=== PATIENT | female | born 1945 | race Caucasian/White ===

== ENCOUNTER → 2016-12-20 | Outpatient (CLI) | payer MEDICARE ==
[~2016-12-20] MED LIST: AC325T PO; ACLI400A IH; ACYC400T21 PO; ALBU8.5H2 IH; ALPR1T PO; ASP81TEC PO; BUDE6HFA IH; BUPR150T6 PO; BUPR150T7 PO; EZET1TAB44 PO; GABA600T2 PO; ISM30TCR PO; ISOS30TA3 PO; ISOS60TA3 PO; LEVO750T24 PO; METH500T35 PO; METH500T7 PO; MTP25TSR; NITR0.3T6 SL; NITR4.1S2 TL; NITROLINGUAL; OMEP20TA2 PO; RPN.25T PO; RT-ALBUINH INH; TRAM1TAB7 PO; TRAZ150T42 PO
[2016-12-20 11:56] LABS: BASOPHILS % (AUTO) 1 % (0-10); EOSINOPHILS # (AUTO) 0.3 10^3/uL (0.0-0.3); EOSINOPHILS % (AUTO) 5 % (0-10); LYMPHOCYTES # (AUTO) 2.8 X 10^3 (1.0-4.0); LYMPHOCYTES % (AUTO) 44 % (12-44); MEAN CORPUSCULAR HEMOGLOBIN 33 PG (25-34); MEAN CORPUSCULAR HGB CONC 33 G/DL (32-36); MEAN CORPUSCULAR VOLUME 100 FL (80-99); MEAN PLATELET VOLUME 11.6 FL (7.4-10.4); MONOCYTES # (AUTO) 0.6 X 10^3 (0.0-1.0); MONOCYTES % (AUTO) 10 % (0-12); NEUTROPHILS # (AUTO) 2.6 X 10^3 (1.8-7.8); NEUTROPHILS % (AUTO) 41 % (42-75); PLATELET COUNT 153 10^3/uL (130-400); RED BLOOD COUNT 4.22 10^6/uL (4.35-5.85); RED CELL DISTRIBUTION WIDTH 12.1 % (10.0-14.5); WHITE BLOOD COUNT 6.3 10^3/uL (4.3-11.0)
[2016-12-20 12:19] LABS: ALBUMIN 4.2 G/DL (3.2-4.5); BILIRUBIN,TOTAL 0.5 MG/DL (0.1-1.0); CALCIUM 9.7 MG/DL (8.5-10.1); CREATININE SERUM 1.01 MG/DL (0.60-1.30); POTASSIUM 3.9 MMOL/L (3.6-5.0); TOTAL PROTEIN 6.5 G/DL (6.4-8.2)
== END ==
LOC: LAB 11:38
PROVIDERS: ATTEND Family Medicine
DX: E78.5 Hyperlipidemia, unspecified (principal); I10 Essential (primary) hypertension; G62.9 Polyneuropathy, unspecified
CPT/HCPCS: 36415; 80053; 80061; 84443; 85025

== ENCOUNTER → 2017-02-19 | Outpatient (CLI) | payer MEDICARE ==
--- NOTE | 2017-02-19 15:42 | Diagnostic Imaging Report ---
PA and lateral views of the chest. COMPARISON: 11/09/2015. INDICATION: Chest wall pain. FINDINGS: The lungs are hyperinflated but clear. The heart size is normal. There is no effusion or pneumothorax. The mediastinum and carol appear unremarkable. IMPRESSION: Hyperinflated clear lungs. Dictated by: Dictated on workstation # [id number]
== END ==
LOC: RAD 14:35
PROVIDERS: ATTEND Family Medicine
DX: R07.89 Other chest pain (principal)
CPT/HCPCS: 71020

== ENCOUNTER → 2017-02-26 | Outpatient (CLI) | payer MEDICARE ==
--- NOTE | 2017-02-28 19:08 | Diagnostic Imaging Report ---
Bilateral screening mammogram The current study was also evaluated with a Computer Aided Detection (CAD) system. Indication: Screening. No current complaints stated on the questionnaire. COMPARISON: 01/13/14. FINDINGS: The breasts are composed of scattered fibroglandular densities. Lobulated nodules with suggestion of fatty hilum are seen in the axillary tail of the right breast and in the lateral aspect of the left breast similar to prior exams compatible with intramammary lymph nodes. Allowing for technique and positional differences, no suspicious change is seen. IMPRESSION: No significant change. ACR BI-RADS Category 2: Benign findings. Result letter will be mailed to the patient. Note: At least 10% of breast cancer is not imaged by mammography. Dictated by: Dictated on workstation # [id number]
== END ==
LOC: RAD 13:04
PROVIDERS: ATTEND Family Medicine
DX: Z12.31 Encounter for screening mammogram for malignant neoplasm of breast (principal)
CPT/HCPCS: 77067

== ENCOUNTER → 2017-06-25 | Outpatient (CLI) | payer MEDICARE ==
--- NOTE | 2017-06-25 15:38 | Diagnostic Imaging Report ---
PROCEDURE: CT chest without contrast. TECHNIQUE: Multiple contiguous axial images were obtained through the chest without the use of intravenous contrast. INDICATION: Chest pain and shortness of breath. FINDINGS: There is mild emphysema changes in the upper lobes. No significant consolidation or mass. No suspicious nodule. No significant interstitial thickening or bronchiectasis. The heart size is normal. There is no pericardial or pleural effusion. The thoracic aorta is normal in caliber. There is no mediastinal mass or significantly enlarged lymph nodes. No significantly enlarged axillary lymph nodes seen. Sections in the upper abdomen demonstrate surgical clips at the gallbladder bed. There is a tiny fat-containing diaphragmatic hernia along the posterior medial aspect of the right hemidiaphragm. The osseous structures demonstrate degenerative changes. IMPRESSION: Upper lobe predominant emphysema changes. Dictated by: Dictated on workstation # [id number]
== END ==
LOC: RAD 13:13
PROVIDERS: ATTEND Family Medicine
DX: J43.9 Emphysema, unspecified (principal)
CPT/HCPCS: 71250

== ENCOUNTER → 2017-09-30 | Outpatient (CLI) | payer MEDICARE ==
--- NOTE | 2017-09-30 16:41 | Diagnostic Imaging Report ---
PROCEDURE: US Carotid Duplex Bilateral. TECHNIQUE: Multiple Real-time grayscale images were obtained over the carotid arteries in various projections bilaterally. Additional duplex Doppler and color Doppler images were also obtained. INDICATION: Left carotid bruit. FINDINGS: Grayscale images demonstrate proximal and distal left internal carotid artery calcified plaque. Prominent calcified plaque also in the proximal right ICA is seen extending into the mid segment with shadowing preventing accurate evaluation of the mid ICA on the right side. Color Doppler demonstrates patency of the common, internal, and external carotid arteries and antegrade flow is demonstrated within the vertebral arteries on both sides. The peak systolic velocities in the right ICA are 98, 149, and 114 cm/s and on the left side are 127, 122, and 136 cm/s. The ICA/CCA ratios are up to 2.4 on the right side and 2.3 on the left. IMPRESSION: There is prominent calcified atherosclerotic plaque along the proximal ICA bilaterally. The velocities demonstrate only mild to moderate elevation; however, the ICA/CCA ratios are elevated above 2 bilaterally. The underlying degree of stenosis is probably within 50-69% bilaterally. Dictated by: Dictated on workstation # [id number]
--- NOTE | 2017-09-30 17:24 | Diagnostic Imaging Report ---
PROCEDURE: CT neck soft tissue without contrast. TECHNIQUE: Multiple contiguous axial images were obtained through the neck without the use of intravenous contrast. INDICATION: Pain in the left side of the neck from ear to shoulder. Left carotid bruit reported. FINDINGS: Noncontrasted images show moderate dense atherosclerotic plaquing within the carotid bulbs bilaterally. There is likely hemodynamic stenosis within both internal carotid arteries. Lack of IV contrast limits detail. Parotid glands appear normal. Submandibular glands are normal. The cervical chains show normal-sized lymph nodes bilaterally. Strap muscles show good preservation of tissue planes. Parapharyngeal tissue planes are normal. Nasopharynx and oropharynx appear normal. Bone windows show no blastic or lytic lesions. Reconstructed images show good alignment of the vertebral bodies with degenerative disc disease centered at C5-C6 with mild hypertrophic bony changes. IMPRESSION: 1. Noncontrasted CT of the neck showing a very dense calcified plaque within the carotid bulbs with probable hemodynamic stenosis of the internal carotid arteries bilaterally. Previous carotid Doppler report from the same day suggests a moderate stenosis. 2. No cervical chain adenopathy. 3. No findings to suggest abscess or neoplasm. Dictated by: Dictated on workstation # [id number]
== END ==
LOC: RAD 03:58
PROVIDERS: ATTEND Family Medicine
DX: I65.23 Occlusion and stenosis of bilateral carotid arteries (principal)
CPT/HCPCS: 70490; 93880

== ENCOUNTER → 2018-06-05 | Outpatient (CLI) | payer MEDICARE ==
--- NOTE | 2018-06-05 14:38 | Diagnostic Imaging Report ---
INDICATION: Loss of voice, chest pain and pain in throat for approximately 7 months.. TECHNIQUE: Two view chest 2:44 PM CORRELATION STUDY: 02/19/2017 FINDINGS: The heart size, mediastinal configuration and pulmonary vasculature are within normal limits. The lungs are slightly hyperlucent and hyperinflated suggestive of chronic predominantly upper lobe emphysematous changes. No consolidating infiltrate. There is no significant pleural effusion or pneumothorax. Slight degenerative changes of the spine. IMPRESSION: 1. No radiographic evidence for acute abnormality of the chest. Chronic changes of the lung parenchyma. Dictated by: Dictated on workstation # [id number]
== END ==
LOC: RAD 14:13
PROVIDERS: ATTEND Nurse Practitioner Family
DX: J02.9 Acute pharyngitis, unspecified (principal); R07.81 Pleurodynia; R49.1 Aphonia; I25.2 Old myocardial infarction; Z95.5 Presence of coronary angioplasty implant and graft
CPT/HCPCS: 71046

== ENCOUNTER → 2018-06-09 | Outpatient (CLI) | payer MEDICARE ==
[2018-06-09 18:10] LABS: BASOPHILS % (AUTO) 0 % (0-10); EOSINOPHILS # (AUTO) 0.2 10^3/uL (0.0-0.3); EOSINOPHILS % (AUTO) 5 % (0-10); HEMATOCRIT 41 % (35-52); HEMOGLOBIN 13.4 G/DL (11.5-16.0); LYMPHOCYTES # (AUTO) 1.3 X 10^3 (1.0-4.0); LYMPHOCYTES % (AUTO) 24 % (12-44); MEAN CORPUSCULAR HEMOGLOBIN 33 PG (25-34); MEAN CORPUSCULAR HGB CONC 33 G/DL (32-36); MEAN CORPUSCULAR VOLUME 99 FL (80-99); MEAN PLATELET VOLUME 11.9 FL (7.4-10.4); MONOCYTES # (AUTO) 0.5 X 10^3 (0.0-1.0); MONOCYTES % (AUTO) 9 % (0-12); NEUTROPHILS # (AUTO) 3.3 X 10^3 (1.8-7.8); NEUTROPHILS % (AUTO) 62 % (42-75); PLATELET COUNT 175 10^3/uL (130-400); RED BLOOD COUNT 4.12 10^6/uL (4.35-5.85); RED CELL DISTRIBUTION WIDTH 12.7 % (10.0-14.5); WHITE BLOOD COUNT 5.3 10^3/uL (4.3-11.0)
[2018-06-09 18:30] LABS: BILIRUBIN,TOTAL 0.6 MG/DL (0.1-1.0); CALCIUM 9.9 MG/DL (8.5-10.1); CREATININE SERUM 1.09 MG/DL (0.60-1.30); POTASSIUM 4.7 MMOL/L (3.6-5.0); TOTAL PROTEIN 6.4 GM/DL (6.4-8.2)
== END ==
LOC: LAB 17:46
PROVIDERS: ATTEND Nurse Practitioner Family
DX: R13.14 Dysphagia, pharyngoesophageal phase (principal); R07.81 Pleurodynia; J02.9 Acute pharyngitis, unspecified; I25.2 Old myocardial infarction; Z95.5 Presence of coronary angioplasty implant and graft
CPT/HCPCS: 36415; 80053; 80061; 84443; 85025

== ENCOUNTER 2019-01-06 06:31 | Outpatient (CLI) | payer MEDICARE ==
[~2019-01-06] VITALS: Ht 157.5 cm; Wt 70.4 kg
[~2019-01-06 06:31] MED LIST changes: +GBPN600T PO
[2019-01-06] MEDS ORDERED: ISOS120T9 PO (14:12)
[2019-01-06] MEDS ORDERED: CYAN250010 PO (14:12)
[2019-01-06] MEDS ORDERED: ASPI-999 PO (14:12)
[2019-01-06] MEDS ORDERED: TRAZ150T72 PO (14:12)
[2019-01-06] MEDS ORDERED: BUDE10.2 IH (14:12)
[2019-01-06] MEDS ORDERED: ATOR40TA PO (14:12)
== END 2019-01-06 14:16 | disposition home or self-care (01) ==
LOC: PREOP 06:31
PROVIDERS: ATTEND Surgery
DX: Z01.818 Encounter for other preprocedural examination (principal)

== ENCOUNTER → 2019-01-12 | Outpatient (CLI) | payer MEDICARE ==
[~2019-01-12] MED LIST changes: +ASPI-999 PO; +ATOR40TA PO; +BUDE10.2 IH; +CYAN250010 PO; +ISOS120T9 PO; +PANT40TA2 PO; +RT-ALBUTEROL SULF 2.5 MG/3 ML PRE-MIX VIAL INH ONE; +RT-ALBUTEROL SULF 2.5 MG/3 ML PRE-MIX VIAL ONE; +TRAZ150T72 PO
--- NOTE | 2019-01-12 16:47 | Diagnostic Imaging Report ---
PROCEDURE: CT chest without contrast. TECHNIQUE: Multiple contiguous axial images were obtained through the chest without the use of intravenous contrast. INDICATION: Dyspnea. COMPARISON: Comparison is made to study of 03/11/2014. FINDINGS: Lungs are clear bilaterally. Coronary artery calcifications and calcification at the origins of the great vessels of the mediastinum are again noted. There may be small amount of pericardial fluid or thickening. There is no evidence of pathologic adenopathy identified on the noncontrasted images. There are degenerative changes in the shoulder girdles. IMPRESSION: No acute abnormality or significant change is seen within the thorax. Dictated by: Dictated on workstation # [id number]
== END ==
LOC: RT 15:31
PROVIDERS: ATTEND Nurse Practitioner Family
DX: R06.00 Dyspnea, unspecified (principal); J44.9 Chronic obstructive pulmonary disease, unspecified; R13.10 Dysphagia, unspecified; F17.201 Nicotine dependence, unspecified, in remission
CPT/HCPCS: 71250; 94060; 94726; 94729

== ENCOUNTER 2019-01-13 12:26 | Day surgery (SDC) | payer MEDICARE ==
[~2019-01-13] VITALS: Ht 157.5 cm; Wt 70.4 kg
[~2019-01-13 12:26] MED LIST changes: -PANT40TA2 PO; -RT-ALBUTEROL SULF 2.5 MG/3 ML PRE-MIX VIAL INH ONE; -RT-ALBUTEROL SULF 2.5 MG/3 ML PRE-MIX VIAL ONE
--- OUTSIDE RECORDS SUMMARY | 2019-01-13 12:30 | XMS REPORT | Continuity of Care Document ---
Author Author [facility] Organization [facility] Address Unknown Phone Unavailable Allergies Active Description Code Type Severity Reaction Onset Reported/Identified Relationship to Patient Clinical Status Yes Iodinated Contrast Media - IV Dye [id number] Drug Allergy Severe ANAPHYLAXIS 09/27/2009 Yes Iodinated Contrast Media - Oral and [id number] Drug Allergy Severe ANAPHYLAXIS 09/27/2009 Yes Iodinated Contrast- Oral and IV Dye [id number] Drug Allergy Severe ANAPHYLAXIS 01/06/2019 Yes codeine [id number] Drug Allergy Moderate NAUSEA 01/06/2019 Yes Antihistamines - Alkylamine [id number] Drug Allergy Mild N/A 01/06/2019 Yes morphine [id number] Drug Allergy Unknown N/A 01/06/2019 Medications There is no data. 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 02/11/2014 MIRLANDE PAUL MD R Ot 496 CHR AIRWAY OBSTRUCT NEC 02/11/2014 MIRLANDE PAUL MD R Ot 518.0 PULMONARY COLLAPSE 02/11/2014 MIRLANDE PAUL MD R Ot 724.5 BACKACHE NOS 02/11/2014 BEVERLY ARNOLD, MIRLANDE R Ot V45.82 PERCUTANEOUS TRANSLUM CORON ANGIOPLASTY 03/10/2014 JARAD BOUDREAUX DO Ot 493.20 CHRONIC OBSTRUCTIVE ASTHMA, NOS 02/11/2015 Ot 079.99 VIRAL INFECTION NOS 02/11/2015 Ot 276.50 VOLUME DEPLETION, UNSPECIFIED 02/11/2015 Ot 496 CHR AIRWAY OBSTRUCT NEC 06/30/2015 BEVERLY ARNOLD, MIRLANDE R Ot 786.50 06/30/2015 MIRLANDE PAUL MD R Ot 786.50 07/15/2015 MIRLANDE PAUL MD R Ot 789.01 11/14/2015 MIRLANDE PAUL MD Ot E78.5 HYPERLIPIDEMIA, UNSPECIFIED 11/14/2015 MIRLANDE PAUL MD R Ot F17.210 NICOTINE DEPENDENCE, CIGARETTES, UNCOMPL 11/14/2015 MIRLANDE PAUL MD R Ot F32.9 MAJOR DEPRESSIVE DISORDER, SINGLE EPISOD 11/14/2015 MIRLANDE PAUL MD R Ot F41.9 ANXIETY DISORDER, UNSPECIFIED 11/14/2015 MIRLANDE PAUL MD R Ot I10 ESSENTIAL (PRIMARY) HYPERTENSION 11/14/2015 MIRLANDE PAUL MD R Ot I25.10 ATHSCL HEART DISEASE OF [place] CORONARY 11/14/2015 MIRLANDE PAUL MD R Ot J44.0 CHRONIC OBSTRUCTIVE PULMON DISEASE W ACU 11/14/2015 MIRLANDE PAUL MD R Ot K21.9 GASTRO-ESOPHAGEAL REFLUX DISEASE WITHOUT 11/14/2015 MIRLANDE PAUL MD R Ot M54.5 LOW BACK PAIN 11/14/2015 MIRLANDE PAUL MD R Ot Z91.14 PATIENT'S OTHER NONCOMPLIANCE WITH MEDIC 12/20/2016 Ot 780.2 SYNCOPE AND COLLAPSE 12/20/2016 Ot 780.2 SYNCOPE AND COLLAPSE 12/20/2016 Ot V76.12 OTH SCREEN MAMMO-MALIGN NEOPLASM OF JOS[place] MIGUEL 12/20/2016 Ot 789.09 ABDOMINAL PAIN, OTHER SPECIFIED SITE 12/20/2016 JARAD BOUDREAUX DO Ot 305.1 TOBACCO USE DISORDER 12/20/2016 JARAD BOUDREAUX DO Ot 493.20 CHRONIC OBSTRUCTIVE ASTHMA, NOS 12/20/2016 JARAD BOUDREAUX DO Ot 729.1 MYALGIA AND MYOSITIS NOS 12/20/2016 BEVERLY ARNOLD, MIRLANDE R Ot 611.72 LUMP OR MASS IN BREAST 12/20/2016 BEVERLY ARNOLD, MIRLANDE R Ot 715.36 LOC OSTEOARTH NOS-L/LEG 12/20/2016 Ot 780.79 OTH MALAISE FATIGUE 12/20/2016 Ot 789.00 ABDOMINAL PAIN, UNSPECIFIED SITE 12/20/2016 JARAD BOUDREAUX DO Ot 296.99 OTHER SPECIFIED EPISODIC MOOD DISORDER 12/20/2016 JARAD BOUDREAUX DO Ot 305.1 TOBACCO USE DISORDER 12/20/2016 JARAD BOUDREAUX DO Ot 401.9 HYPERTENSION NOS 12/20/2016 JARAD BOUDREAUX DO Ot 493.20 CHRONIC OBSTRUCTIVE ASTHMA, NOS 12/20/2016 JARAD BOUDREAUX DO Ot 793.19 OTHER NONSPECIFIC ABNORMAL FINDING OF BEN 12/20/2016 Ot 493.20 CHRONIC OBSTRUCTIVE ASTHMA, NOS 12/20/2016 MIRLANDE PAUL MD R Ot 786.50 CHEST PAIN NOS 12/20/2016 BEVERLY ARNOLD MIRLANDE R Ot 786.50 CHEST PAIN NOS 12/20/2016 MIRLANDE PAUL MD R Ot 789.01 ABDOMINAL PAIN, RIGHT UPPER QUADRANT 12/21/2016 MIRLANDE PAUL MD R Ot E78.5 HYPERLIPIDEMIA, UNSPECIFIED 12/21/2016 MIRLANDE PAUL MD R Ot G62.9 POLYNEUROPATHY, UNSPECIFIED 12/21/2016 BEVERLY ARNOLD MIRLANDE R Ot I10 ESSENTIAL (PRIMARY) HYPERTENSION 01/10/2017 MIRLANDE PAUL MD R Ot E78.5 HYPERLIPIDEMIA, UNSPECIFIED 01/10/2017 BEVERLY ARNOLD MIRLANDE R Ot G62.9 POLYNEUROPATHY, UNSPECIFIED 01/10/2017 BEVERLY ARNOLD MIRLANDE R Ot I10 ESSENTIAL (PRIMARY) HYPERTENSION 02/19/2017 Ot 780.2 SYNCOPE AND COLLAPSE 02/19/2017 Ot 780.2 SYNCOPE AND COLLAPSE 02/19/2017 Ot V76.12 OTH SCREEN MAMMO-MALIGN NEOPLASM OF [place] 02/19/2017 Ot 789.09 ABDOMINAL PAIN, OTHER SPECIFIED SITE 02/19/2017 JARAD BOUDREAUX DO Ot 305.1 TOBACCO USE DISORDER 02/19/2017 JARAD BOUDREAUX DO Ot 493.20 CHRONIC OBSTRUCTIVE ASTHMA, NOS 02/19/2017 JARAD BOUDREAUX DO Ot 729.1 MYALGIA AND MYOSITIS NOS 02/19/2017 MIRLANDE PAUL MD R Ot 611.72 LUMP OR MASS IN BREAST 02/19/2017 MIRLANDE PAUL MD R Ot 715.36 LOC OSTEOARTH NOS-L/LEG 02/19/2017 Ot 780.79 OTH MALAISE FATIGUE 02/19/2017 Ot 789.00 ABDOMINAL PAIN, UNSPECIFIED SITE 02/19/2017 JARAD BOUDREAUX DO Ot 296.99 OTHER SPECIFIED EPISODIC MOOD DISORDER 02/19/2017 JARAD BOUDREAUX DO Ot 305.1 TOBACCO USE DISORDER 02/19/2017 JARAD BOUDREAUX DO Ot 401.9 HYPERTENSION NOS 02/19/2017 JARAD BOUDREAUX DO Ot 493.20 CHRONIC OBSTRUCTIVE ASTHMA, NOS 02/19/2017 JARAD BOUDREAUX DO Ot 793.19 OTHER NONSPECIFIC ABNORMAL FINDING OF BEN 02/19/2017 Ot 493.20 CHRONIC OBSTRUCTIVE ASTHMA, NOS 02/19/2017 MIRLANDE PAUL MD R Ot 786.50 CHEST PAIN NOS 02/19/2017 MIRLANDE PAUL MD Ot 786.50 CHEST PAIN NOS 02/19/2017 MIRLANDE PAUL MD Ot 789.01 ABDOMINAL PAIN, RIGHT UPPER QUADRANT 02/19/2017 MIRLANDE PAUL MD Ot E78.5 HYPERLIPIDEMIA, UNSPECIFIED 02/19/2017 MIRLANDE PAUL MD Ot G62.9 POLYNEUROPATHY, UNSPECIFIED 02/19/2017 MIRLANDE PAUL MD R Ot I10 ESSENTIAL (PRIMARY) HYPERTENSION 02/19/2017 MIRLANDE PAUL MD R Ot Z12.31 ENCNTR SCREEN MAMMOGRAM FOR MALIGNANT NE 02/20/2017 MIRLANDE PAUL MD R Ot R07.89 OTHER CHEST PAIN 03/18/2017 MIRLANDE PAUL MD Ot R07.89 OTHER CHEST PAIN 03/19/2017 MIRLANDE PAUL MD Ot Z12.31 ENCNTR SCREEN MAMMOGRAM FOR MALIGNANT NE 07/16/2017 MIRLANDE PAUL MD Ot J43.9 EMPHYSEMA, UNSPECIFIED 09/30/2017 Ot 780.2 SYNCOPE AND COLLAPSE 09/30/2017 Ot 780.2 SYNCOPE AND COLLAPSE 09/30/2017 Ot V76.12 OTH SCREEN MAMMO-MALIGN NEOPLASM OF [place] 09/30/2017 Ot 789.09 ABDOMINAL PAIN, OTHER SPECIFIED SITE 09/30/2017 JARAD BOUDREAUX DO Ot 305.1 TOBACCO USE DISORDER 09/30/2017 JARAD BOUDREAUX DO Ot 493.20 CHRONIC OBSTRUCTIVE ASTHMA, NOS 09/30/2017 JARAD BOUDREAUX DO Ot 729.1 MYALGIA AND MYOSITIS NOS 09/30/2017 MIRLANDE PAUL MD R Ot 611.72 LUMP OR MASS IN BREAST 09/30/2017 MIRLANDE PAUL MD R Ot 715.36 LOC OSTEOARTH NOS-L/LEG 09/30/2017 Ot 780.79 OTH MALAISE FATIGUE 09/30/2017 Ot 789.00 ABDOMINAL PAIN, UNSPECIFIED SITE 09/30/2017 JARAD BOUDREAUX DO Ot 296.99 OTHER SPECIFIED EPISODIC MOOD DISORDER 09/30/2017 JARAD BOUDREAUX DO Ot 305.1 TOBACCO USE DISORDER 09/30/2017 JARAD BOUDREAUX DO Ot 401.9 HYPERTENSION NOS 09/30/2017 JARAD BOUDREAUX DO Ot 493.20 CHRONIC OBSTRUCTIVE ASTHMA, NOS 09/30/2017 JARAD BOUDREAUX DO Ot 793.19 OTHER NONSPECIFIC ABNORMAL FINDING OF BEN 09/30/2017 Ot 493.20 CHRONIC OBSTRUCTIVE ASTHMA, NOS 09/30/2017 MIRLANDE PAUL MD R Ot 786.50 CHEST PAIN NOS 09/30/2017 MIRLANDE PAUL MD R Ot 786.50 CHEST PAIN NOS 09/30/2017 MIRLANDE PAUL MD R Ot 789.01 ABDOMINAL PAIN, RIGHT UPPER QUADRANT 09/30/2017 MIRLANDE PAUL MD R Ot E78.5 HYPERLIPIDEMIA, UNSPECIFIED 09/30/2017 MIRLANDE PAUL MD R Ot G62.9 POLYNEUROPATHY, UNSPECIFIED 09/30/2017 MIRLANDE PAUL MD R Ot I10 ESSENTIAL (PRIMARY) HYPERTENSION 09/30/2017 MIRLANDE PAUL MD R Ot Z12.31 ENCNTR SCREEN MAMMOGRAM FOR MALIGNANT NE 09/30/2017 MIRLANDE PAUL MD R Ot R07.89 OTHER CHEST PAIN 09/30/2017 MIRLANDE PAUL MD R Ot J43.9 EMPHYSEMA, UNSPECIFIED 09/30/2017 BEVERLY ARNOLD, MIRLANDE Olivera Ot R09.89 OTH SYMPTOMS AND SIGNS INVOLVING THE CIR 10/01/2017 BEVERLY ARNOLD, MIRLANDE Olivera Ot I65.23 OCCLUSION AND STENOSIS OF BILATERAL BRIGHT 10/22/2017 BEVERLY ARNOLD, MIRLANDE Olivera Ot I65.23 OCCLUSION AND STENOSIS OF BILATERAL BRIGHT 06/06/2018 JOSE MIGUEL JOSE ALBERTO R MIDDLEWARE CONSULTANT Ot I25.2 OLD MYOCARDIAL INFARCTION 06/06/2018 JOSE MIGUEL, JOSE ALBERTO R MIDDLEWARE CONSULTANT Ot J02.9 ACUTE PHARYNGITIS, UNSPECIFIED 06/06/2018 JOSE MIGUEL, JOSE ALBERTO R MIDDLEWARE CONSULTANT Ot R07.81 PLEURODYNIA 06/06/2018 JOSE MIGUEL, JOSE ALBERTO R MIDDLEWARE CONSULTANT Ot R49.1 APHONIA 06/06/2018 JOSE MIGUEL, JOSE ALBERTO R MIDDLEWARE CONSULTANT Ot Z95.5 PRESENCE OF CORONARY ANGIOPLASTY IMPLANT 06/10/2018 JOSE MIGUEL JOSE ALBERTO R MIDDLEWARE CONSULTANT Ot I25.2 OLD MYOCARDIAL INFARCTION 06/10/2018 JOSE MIGUEL, JOSE ALBERTO R MIDDLEWARE CONSULTANT Ot R13.14 DYSPHAGIA, PHARYNGOESOPHAGEAL PHASE 06/11/2018 JOSE MIGUEL JOSE ALBERTO R MIDDLEWARE CONSULTANT Ot I25.2 OLD MYOCARDIAL INFARCTION 06/11/2018 JOSE MIGUEL, JOSE ALBERTO R MIDDLEWARE CONSULTANT Ot J02.9 ACUTE PHARYNGITIS, UNSPECIFIED 06/11/2018 JOSE MIGUEL, JOSE ALBERTO R MIDDLEWARE CONSULTANT Ot R07.81 PLEURODYNIA 06/11/2018 JOSE MIGUEL, JOSE ALBERTO R MIDDLEWARE CONSULTANT Ot R49.1 APHONIA 06/11/2018 JOSE MIGUEL, JOSE ALBERTO R MIDDLEWARE CONSULTANT Ot Z95.5 PRESENCE OF CORONARY ANGIOPLASTY IMPLANT 06/11/2018 JOSE MIGUEL JOSE ALBERTO R MIDDLEWARE CONSULTANT Ot I25.2 OLD MYOCARDIAL INFARCTION 06/11/2018 JOSE MIGUEL JOSE ALBERTO R MIDDLEWARE CONSULTANT Ot J02.9 ACUTE PHARYNGITIS, UNSPECIFIED 06/11/2018 OJSE MIGUEL, JOSE ALBERTO R MIDDLEWARE CONSULTANT Ot R07.81 PLEURODYNIA 06/11/2018 JOSE MIGUEL, JOSE ALBERTO R MIDDLEWARE CONSULTANT Ot R13.14 DYSPHAGIA, PHARYNGOESOPHAGEAL PHASE 06/11/2018 JOSE MIGUEL JOSE ALBERTO R MIDDLEWARE CONSULTANT Ot Z95.5 PRESENCE OF CORONARY ANGIOPLASTY IMPLANT 06/15/2018 JOSE MIGUEL JOSE ALBERTO R MIDDLEWARE CONSULTANT Ot I25.2 OLD MYOCARDIAL INFARCTION 06/15/2018 JOSE MIGUEL, JOSE ALBERTO R MIDDLEWARE CONSULTANT Ot J02.9 ACUTE PHARYNGITIS, UNSPECIFIED 06/15/2018 JOSE MIGUEL, JOSE ALBERTO R MIDDLEWARE CONSULTANT Ot R07.81 PLEURODYNIA 06/15/2018 JOSE MIGUEL, JOSE ALBERTO R MIDDLEWARE CONSULTANT Ot R13.14 DYSPHAGIA, PHARYNGOESOPHAGEAL PHASE 06/15/2018 JOSE MIGUEL, JOSE ALBERTO R MIDDLEWARE CONSULTANT Ot Z95.5 PRESENCE OF CORONARY ANGIOPLASTY IMPLANT 06/25/2018 JOSE MIGUEL, JOSE ALBERTO R MIDDLEWARE CONSULTANT Ot I25.2 OLD MYOCARDIAL INFARCTION 06/25/2018 JOSE MIGUEL, JOSE ALBERTO R MIDDLEWARE CONSULTANT Ot J02.9 ACUTE PHARYNGITIS, UNSPECIFIED 06/25/2018 JOSE MIGUEL, JOSE ALBERTO R MIDDLEWARE CONSULTANT Ot R07.81 PLEURODYNIA 06/25/2018 JOSE MIGUEL, JOSE ALBERTO R MIDDLEWARE CONSULTANT Ot R49.1 APHONIA 06/25/2018 JOSE MIGUEL, JOSE ALBERTO R MIDDLEWARE CONSULTANT Ot Z95.5 PRESENCE OF CORONARY ANGIOPLASTY IMPLANT 07/01/2018 JOSE MIGUEL, JOSE ALBERTO R MIDDLEWARE CONSULTANT Ot I25.2 OLD MYOCARDIAL INFARCTION 07/01/2018 JOSE MIGUEL, JOSE ALBERTO R MIDDLEWARE CONSULTANT Ot J02.9 ACUTE PHARYNGITIS, UNSPECIFIED 07/01/2018 JOSE MIGUEL, JOSE ALBERTO R MIDDLEWARE CONSULTANT Ot R07.81 PLEURODYNIA 07/01/2018 JOSE MIGUEL, JOSE ALBERTO R MIDDLEWARE CONSULTANT Ot R13.14 DYSPHAGIA, PHARYNGOESOPHAGEAL PHASE 07/01/2018 JOSE MIGUEL, JOSE ALBERTO R MIDDLEWARE CONSULTANT Ot Z95.5 PRESENCE OF CORONARY ANGIOPLASTY IMPLANT 01/06/2019 Ot 780.79 OTH MALAISE FATIGUE 01/06/2019 Ot 789.00 ABDOMINAL PAIN, UNSPECIFIED SITE 01/06/2019 Ot 493.20 CHRONIC OBSTRUCTIVE ASTHMA, NOS 01/06/2019 TADEO LEDESMA DO Ot Z01.818 ENCOUNTER FOR OTHER PREPROCEDURAL EXAMIN 01/12/2019 JARAD BOUDREAUX DO Ot 305.1 TOBACCO USE DISORDER 01/12/2019 JARAD BOUDREAUX DO Ot 493.20 CHRONIC OBSTRUCTIVE ASTHMA, NOS 01/12/2019 JARAD BOUDREAUX DO Ot 729.1 MYALGIA AND MYOSITIS NOS 01/12/2019 BEVERLY ARNOLD, MIRLANDE R Ot 611.72 LUMP OR MASS IN BREAST 01/12/2019 BEVERLY ARNOLD, MIRLANDE Olivera Ot 715.36 LOC OSTEOARTH NOS-L/LEG 01/12/2019 Ot 780.79 OTH MALAISE FATIGUE 01/12/2019 Ot 789.00 ABDOMINAL PAIN, UNSPECIFIED SITE 01/12/2019 JANUSZ MUÑOZ JARAD Rick Ot 296.99 OTHER SPECIFIED EPISODIC MOOD DISORDER 01/12/2019 JANUSZ MUÑOZ JARAD Rick Ot 305.1 TOBACCO USE DISORDER 01/12/2019 JANUSZ MUÑOZ JARAD Rick Ot 401.9 HYPERTENSION NOS 01/12/2019 JANUSZ MUÑOZ JARAD Rick Ot 493.20 CHRONIC OBSTRUCTIVE ASTHMA, NOS 01/12/2019 JANUSZ MUÑOZ JARAD Rick Ot 793.19 OTHER NONSPECIFIC ABNORMAL FINDING OF BEN 01/12/2019 Ot 493.20 CHRONIC OBSTRUCTIVE ASTHMA, NOS 01/12/2019 BEVERLY ARNOLD, MIRLANDE R Ot 786.50 CHEST PAIN NOS 01/12/2019 BEVERLY ARNOLD, MIRLANDE R Ot 786.50 CHEST PAIN NOS 01/12/2019 BEVERLY ARNOLD, MIRLANDE R Ot 789.01 ABDOMINAL PAIN, RIGHT UPPER QUADRANT 01/12/2019 BEVERLY ARNOLD, MIRLANDE R Ot E78.5 HYPERLIPIDEMIA, UNSPECIFIED 01/12/2019 BEVERLY ARNOLD, MIRLANDE R Ot G62.9 POLYNEUROPATHY, UNSPECIFIED 01/12/2019 BEVERLY ARNOLD, MIRLANDE R Ot I10 ESSENTIAL (PRIMARY) HYPERTENSION 01/12/2019 BEVERLY ARNOLD, MIRLANDE R Ot Z12.31 ENCNTR SCREEN MAMMOGRAM FOR MALIGNANT NE 01/12/2019 BEVERLY ARNOLD, MIRLANDE R Ot R07.89 OTHER CHEST PAIN 01/12/2019 BEVERLY ARNOLD, MIRLANDE R Ot J43.9 EMPHYSEMA, UNSPECIFIED 01/12/2019 BEVERLY ARNOLD, MIRLANDE R Ot I65.23 OCCLUSION AND STENOSIS OF BILATERAL BRIGHT 01/12/2019 JOSE ALBERTO GILLESPIE R MIDDLEWARE CONSULTANT Ot I25.2 OLD MYOCARDIAL INFARCTION 01/12/2019 JOSE ALBERTO GILLESPIE R MIDDLEWARE CONSULTANT Ot J02.9 ACUTE PHARYNGITIS, UNSPECIFIED 01/12/2019 JOSE ALBERTO GILLESPIE R MIDDLEWARE CONSULTANT Ot R07.81 PLEURODYNIA 01/12/2019 JOSE ALBERTO GILLESPIE R MIDDLEWARE CONSULTANT Ot R49.1 APHONIA 01/12/2019 JOSE ALBERTO GILLESPIE R MIDDLEWARE CONSULTANT Ot Z95.5 PRESENCE OF CORONARY ANGIOPLASTY IMPLANT 01/12/2019 JOSE ALBERTO GILLESPIE R MIDDLEWARE CONSULTANT Ot I25.2 OLD MYOCARDIAL INFARCTION 01/12/2019 JOSE ALBERTO GILLESPIE R MIDDLEWARE CONSULTANT Ot J02.9 ACUTE PHARYNGITIS, UNSPECIFIED 01/12/2019 JOSE ALBERTO GILLESPIE MIDDLEWARE CONSULTANT Ot R07.81 PLEURODYNIA 01/12/2019 JOSE ALBERTO GILLESPIE MIDDLEWARE CONSULTANT Ot R13.14 DYSPHAGIA, PHARYNGOESOPHAGEAL PHASE 01/12/2019 JOSE ALBERTO GILLESPIE MIDDLEWARE CONSULTANT Ot Z95.5 PRESENCE OF CORONARY ANGIOPLASTY IMPLANT 01/13/2019 JANY STEVE APRN Ot F17.201 NICOTINE DEPENDENCE, UNSPECIFIED, IN REM 01/13/2019 JANY STEVE APRN Ot J44.9 CHRONIC OBSTRUCTIVE PULMONARY DISEASE, U 01/13/2019 JANY STEVE APRN Ot R06.00 DYSPNEA, UNSPECIFIED 01/13/2019 JANY STEVE APRN Ot R13.10 DYSPHAGIA, UNSPECIFIED Procedures Code Description Performed By Performed On 47.11 LAPAROSCOPIC INCIDENTAL 09/28/2009 51.23 LAPAROSCOPIC CHOLECYSTECTOMY 09/28/2009 Results Test Result Range Complete blood count (CBC) with automated white blood cell (WBC) differential - 12/20/16 11:51 Blood leukocytes automated count (number/volume) 6.3 10*3/uL 4.3-11.0 Blood erythrocytes automated count (number/volume) 4.22 10*6/uL 4.35-5.85 Venous blood hemoglobin measurement (mass/volume) 14.0 g/dL 11.5-16.0 Blood hematocrit (volume fraction) 42 % 35-52 Automated erythrocyte mean corpuscular volume 100 [foz_us] 80-99 Automated erythrocyte mean corpuscular hemoglobin (mass per erythrocyte) 33 pg 25-34 Automated erythrocyte mean corpuscular hemoglobin concentration measurement ( mass/volume) 33 g/dL 32-36 Automated erythrocyte distribution width ratio 12.1 % 10.0-14.5 Automated blood platelet count (count/volume) 153 10*3/uL 130-400 Automated blood platelet mean volume measurement 11.6 [foz_us] 7.4-10.4 Automated blood neutrophils/100 leukocytes 41 % 42-75 Automated blood lymphocytes/100 leukocytes 44 % 12-44 Blood monocytes/100 leukocytes 10 % 0-12 Automated blood eosinophils/100 leukocytes 5 % 0-10 Automated blood basophils/100 leukocytes 1 % 0-10 Blood neutrophils automated count (number/volume) 2.6 10*3 1.8-7.8 Blood lymphocytes automated count (number/volume) 2.8 10*3 1.0-4.0 Blood monocytes automated count (number/volume) 0.6 10*3 0.0-1.0 Automated eosinophil count 0.3 10*3/uL 0.0-0.3 Automated blood basophil count (count/volume) 0.0 10*3/uL 0.0-0.1 Comprehensive metabolic panel - 12/20/16 11:51 Serum or plasma sodium measurement (moles/volume) 140 mmol/L 135-145 Serum or plasma potassium measurement (moles/volume) 3.9 mmol/L 3.6-5.0 Serum or plasma chloride measurement (moles/volume) 105 mmol/L 98-107 Carbon dioxide 26 mmol/L 21-32 Serum or plasma anion gap determination (moles/volume) 9 mmol/L 5-14 Serum or plasma urea nitrogen measurement (mass/volume) 11 mg/dL 7-18 Serum or plasma creatinine measurement (mass/volume) 1.01 mg/dL 0.60-1.30 Serum or plasma urea nitrogen/creatinine mass ratio 11 NRG Serum or plasma creatinine measurement with calculation of estimated glomerular filtration rate 54 NRG Serum or plasma glucose measurement (mass/volume) 101 mg/dL 70-105 Serum or plasma calcium measurement (mass/volume) 9.7 mg/dL 8.5-10.1 Serum or plasma total bilirubin measurement (mass/volume) 0.5 mg/dL 0.1-1.0 Serum or plasma alkaline phosphatase measurement (enzymatic activity/volume) 91 U/L 40-136 Serum or plasma aspartate aminotransferase measurement (enzymatic activity/ volume) 19 U/L 5-34 Serum or plasma alanine aminotransferase measurement (enzymatic activity/volume ) 15 U/L 0-55 Serum or plasma protein measurement (mass/volume) 6.5 g/dL 6.4-8.2 Serum or plasma albumin measurement (mass/volume) 4.2 g/dL 3.2-4.5 Lipid 1996 panel - 12/20/16 11:51 Serum or plasma triglyceride measurement (mass/volume) 148 mg/dL <150 Serum or plasma cholesterol measurement (mass/volume) 291 mg/dL < 200 Serum or plasma cholesterol in HDL measurement (mass/volume) 51 mg/ dL 40-60 Cholesterol in LDL [mass/volume] in serum or plasma by direct assay 228 mg/dL 1-129 Serum or plasma cholesterol in VLDL measurement (mass/volume) 30 mg/ dL 5-40 Serum or plasma thyrotropin measurement by detection limit <=0.05 miu/l (units/ volume) - 12/20/16 11:51 Serum or plasma thyrotropin measurement by detection limit <=0.05 miu/l (units/ volume) 2.25 u[iU]/mL 0.35-4.94 Complete blood count (CBC) with automated white blood cell (WBC) differential - 06/09/18 18:05 Blood leukocytes automated count (number/volume) 5.3 10*3/uL 4.3-11.0 Blood erythrocytes automated count (number/volume) 4.12 10*6/uL 4.35-5.85 Venous blood hemoglobin measurement (mass/volume) 13.4 g/dL 11.5-16.0 Blood hematocrit (volume fraction) 41 % 35-52 Automated erythrocyte mean corpuscular volume 99 [foz_us] 80-99 Automated erythrocyte mean corpuscular hemoglobin (mass per erythrocyte) 33 pg 25-34 Automated erythrocyte mean corpuscular hemoglobin concentration measurement ( mass/volume) 33 g/dL 32-36 Automated erythrocyte distribution width ratio 12.7 % 10.0-14.5 Automated blood platelet count (count/volume) 175 10*3/uL 130-400 Automated blood platelet mean volume measurement 11.9 [foz_us] 7.4-10.4 Automated blood neutrophils/100 leukocytes 62 % 42-75 Automated blood lymphocytes/100 leukocytes 24 % 12-44 Blood monocytes/100 leukocytes 9 % 0-12 Automated blood eosinophils/100 leukocytes 5 % 0-10 Automated blood basophils/100 leukocytes 0 % 0-10 Blood neutrophils automated count (number/volume) 3.3 10*3 1.8-7.8 Blood lymphocytes automated count (number/volume) 1.3 10*3 1.0-4.0 Blood monocytes automated count (number/volume) 0.5 10*3 0.0-1.0 Automated eosinophil count 0.2 10*3/uL 0.0-0.3 Automated blood basophil count (count/volume) 0.0 10*3/uL 0.0-0.1 Comprehensive metabolic panel - 06/09/18 18:05 Serum or plasma sodium measurement (moles/volume) 141 mmol/L 135-145 Serum or plasma potassium measurement (moles/volume) 4.7 mmol/L 3.6-5.0 Serum or plasma chloride measurement (moles/volume) 106 mmol/L 98-107 Carbon dioxide 27 mmol/L 21-32 Serum or plasma anion gap determination (moles/volume) 8 mmol/L 5-14 Serum or plasma urea nitrogen measurement (mass/volume) 9 mg/dL 7-18 Serum or plasma creatinine measurement (mass/volume) 1.09 mg/dL 0.60-1.30 Serum or plasma urea nitrogen/creatinine mass ratio 8 NRG Serum or plasma creatinine measurement with calculation of estimated glomerular filtration rate 50 NRG Serum or plasma glucose measurement (mass/volume) 117 mg/dL 70-105 Serum or plasma calcium measurement (mass/volume) 9.9 mg/dL 8.5-10.1 Serum or plasma total bilirubin measurement (mass/volume) 0.6 mg/dL 0.1-1.0 Serum or plasma alkaline phosphatase measurement (enzymatic activity/volume) 103 U/L 40-136 Serum or plasma aspartate aminotransferase measurement (enzymatic activity/ volume) 30 U/L 5-34 Serum or plasma alanine aminotransferase measurement (enzymatic activity/volume ) 24 U/L 0-55 Serum or plasma protein measurement (mass/volume) 6.4 g/dL 6.4-8.2 Serum or plasma albumin measurement (mass/volume) 4.0 g/dL 3.2-4.5 Lipid 1996 panel - 06/09/18 18:05 Serum or plasma triglyceride measurement (mass/volume) 174 mg/dL <150 Serum or plasma cholesterol measurement (mass/volume) 177 mg/dL < 200 Serum or plasma cholesterol in HDL measurement (mass/volume) 46 mg/ dL 40-60 Cholesterol in LDL [mass/volume] in serum or plasma by direct assay 100 mg/dL 1-129 Serum or plasma cholesterol in VLDL measurement (mass/volume) 35 mg/ dL 5-40 THYROID STIMULATING HORMONE - 06/09/18 18:05 THYROID STIMULATING HORMONE 0.54 u[iU]/mL 0.35-4.94 Encounters ACCT No. Visit Date/Time Discharge Status Pt. Type Provider Facility Loc./Unit Complaint [id number] 01/06/2019 06:31:00 01/06/2019 14:16:00 DIS Outpatient TADEO LEDESMA DO [facility] PREOP EGD [id number] 12/31/2018 08:39:00 12/31/2018 23:59:59 CLS Preadmit JANY STEVE [employer] [facility] RAD DYSPNEA, DYSPHAGIA, ASTHMA [id number] 06/09/2018 17:46:00 06/09/2018 23:59:59 CLS Outpatient JOSE ALBERTO GILLESPIE [employer] [facility] LAB HX OF HEART ARTERY STENT, RIB PAIN ON RIGHT SIDE [id number] 06/05/2018 14:13:00 06/05/2018 23:59:59 CLS Outpatient JOSE ALBERTO GILLESPIE [employer] [facility] RAD Z95.5,R07.81 [id number] 09/30/2017 03:58:00 09/30/2017 23:59:59 CLS Outpatient MIRLANDE PAUL MD [facility] RAD NECK PAIN ON LEFT SIDE M54.2 [id number] 06/25/2017 13:13:00 06/25/2017 23:59:59 CLS Outpatient MIRLANDE PAUL MD [facility] RAD POLARIC INTERMITTENT PAIN ; CHEST [id number] 02/26/2017 13:04:00 02/26/2017 23:59:59 CLS Outpatient MIRLANDE PAUL MD [facility] RAD SCREENING [id number] 02/19/2017 14:35:00 02/19/2017 23:59:59 CLS Outpatient MIRLANDE PAUL MD [facility] RAD CHEST WALL PAIN [id number] 12/20/2016 11:38:00 12/20/2016 23:59:59 CLS Outpatient MIRLANDE PAUL MD [facility] LAB HYPERLYDEMIA HTN NEUROPATHY [id number] 11/09/2015 12:50:00 11/14/2015 11:30:00 DIS Inpatient MIRLANDE PAUL MD [facility] 4TH SOB [id number] 06/22/2015 14:19:00 06/22/2015 23:59:59 CLS Outpatient MIRLANDE PAUL MD [facility] RAD R UQ PAIN [id number] 06/09/2015 07:35:00 06/09/2015 23:59:59 CLS Outpatient MIRLANDE PAUL MD [facility] CARD R UPPER CHEST PAIN, [id number] 06/08/2015 16:52:00 06/08/2015 23:59:59 CLS Outpatient MIRLANDE PAUL MD [facility] RAD RT UPPER CHEST PAIN [id number] 03/11/2014 14:19:00 03/11/2014 23:59:59 CLS Outpatient JARAD BOUDREAUX DO [facility] RAD ASTHMA,COPD, [id number] 01/21/2014 13:00:00 03/10/2014 00:01:00 DIS Outpatient JARAD BOUDREAUX DO [facility] PULM COPD,ASTHMA [id number] 02/09/2014 15:04:00 02/09/2014 23:59:59 CLS Inpatient MIRLANDE PAUL MD [facility] CSD PNEUMONIA,CHEST PAIN [id number] 01/13/2014 13:45:00 01/13/2014 23:59:59 CLS Outpatient MIRLANDE PAUL MD [facility] RAD DENSITY [id number] 10/01/2013 11:45:00 12/30/2013 00:01:00 DIS Outpatient MIRLANDE PAUL MD [facility] LAB ABD PAIN [id number] 12/24/2013 11:44:00 12/24/2013 23:59:59 CLS Outpatient MIRLANDE PAUL MD [facility] RAD PAIN IN BOTH KNEES [id number] 10/21/2013 14:08:00 10/21/2013 23:59:59 CLS Outpatient JARAD BOU[facility]REAUX [facility] [place] [facility] COPD,ASTHMA [id number] 01/13/2019 12:26:00 ACT Outpatient TADEO LEDESMA DO [facility] [place] ENDO DYSPHAGIA/EPIGASTRIC PAIN [id number] 01/12/2019 15:31:00 ACT Outpatient JANY STEVE APRN [facility] [place] RT DYSPNEA, DYSPHAGIA, ASTHMA [id number] 02/09/2015 16:45:00 Document Registration [id number] 03/11/2014 08:00:00 Document Registration [id number] 12/31/2013 00:00:00 Document Registration [id number] 03/10/2013 12:52:00 Document Registration [id number] 12/05/2012 13:46:00 Document Registration [id number] 09/03/2012 14:00:00 Document Registration [id number] 09/01/2012 12:39:00 Document Registration [id number] 09/28/2009 14:45:00 Document Registration
[2019-01-13] MEDS ORDERED: LACTATED RINGERS 1,000 ML IV ONE (12:34)
[2019-01-13] MEDS ORDERED: PROPOFOL INJECTION 50 ML IV ONE (12:44)
[2019-01-13] MEDS ORDERED: LACTATED RINGERS 1,000 ML IV STA (12:59)
[2019-01-13] MEDS ORDERED: HURRICAINE EXT TUBE (BENZOCAINE) XX PRN (13:00)
[2019-01-13 13:02] VITALS: BP 138/79
--- NOTE | 2019-01-13 13:16 | Progress Note-Pre Operative ---
Pre-Operative Progress Note H&P Reviewed The H&P was reviewed, patient examined and no changes noted. Date Seen by Provider: Jan 13, 2019 Time Seen by Provider: 13:15 Date H&P Reviewed: Jan 13, 2019 Time H&P Reviewed: 13:15 Pre-Operative Diagnosis: dysphagia, epigastric abdominal pain TADEO LEDESMA DO Jan 13, 2019 13:16
[2019-01-13] MEDS ORDERED: HURRICAINE EXT TUBE (BENZOCAINE) ONE (13:27)
[2019-01-13 13:35] VITALS: BP 124/60
--- NOTE | 2019-01-13 13:39 | Progress Note-Post Operative ---
Post-Operative Progess Note Surgeon (s)/Wire Dropper (s) Surgeon TADEO LEDESMA DO Wire Dropper: na Pre-Operative Diagnosis dysphagia, epigastric abdominal pain Post-Operative Diagnosis schotzki ring, hiatal hernia, reflux esophagitis Procedure & Operative Findings Date of Procedure 01/13/19 Procedure Performed/Findings egd c biopsies Anesthesia Type per acquisition marketing coordinator Estimated Blood Loss Estimated blood loss (mL): none Specimens/Packing Specimens Removed antrum, ge TADEO LEDESMA DO Jan 13, 2019 13:38
[2019-01-13] MEDS ORDERED: PANT40TA2 PO (13:40)
--- NOTE | 2019-01-13 13:43 | Discharge Inst-Simple/Standard ---
Discharge Inst-Standard Discharge Medications New, Converted or Re-Newed RX: Transmitted to Pharmacy Patient Instructions/Follow Up Plan of Care/Instructions/FU: 2 - 3 weeks Activity as Tolerated: Yes Discharge Diet: Regular Diet TADEO LEDESMA DO Jan 13, 2019 13:43
--- NOTE | 2019-01-13 13:56 | Anesthesia-General Post-Op ---
MAC Patient Condition Mental Status/LOC: Same as Preop Cardiovascular: Satisfactory Nausea/Vomiting: Absent Respiratory: Satisfactory Pain: Controlled Complications: Absent Post Op Complications Complications None Follow Up Care/Instructions Patient Instructions None needed. Anesthesiology Discharge Order Discharge Order Patient is doing well, no complaints, stable vital signs, no apparent adverse anesthesia problems. No complications reported per nursing. KAYLI BOWENS CRNA Jan 13, 2019 13:56
[2019-01-13 14:05] VITALS: BP 149/69
[2019-01-13 15:12] VITALS: BP 149/69
--- NOTE | 2019-01-13 15:16 | OPERATIVE REPORT ---
DATE OF SERVICE: 01/13/2019 PREOPERATIVE DIAGNOSES: Dysphagia and epigastric abdominal pain. POSTOPERATIVE DIAGNOSES: Schatzki ring, hiatal hernia and reflux esophagitis. PROCEDURES: EGD with biopsies. SURGEON: Tadeo Duong DO. ANESTHESIA: Per BALANCE WHEEL ARM BURNISHER. ESTIMATED BLOOD LOSS: None. COMPLICATIONS: None. INDICATIONS: The patient is a 73-year-old female with epigastric abdominal pain and dysphagia. She understands the risks and benefits of the procedure and wished to proceed with the procedure. Consent was signed on the chart. DESCRIPTION OF PROCEDURE: The patient was taken to the endoscopy suite and placed in the left lateral recumbent position. Timeout was performed. Scope was inserted in mouth, down the esophagus, stomach and into the duodenum without difficulty. There were no polyps, masses or ulcerations in the duodenum. Scope was slowly retracted back into the stomach where it was further insufflated. Slight erythematous changes were present. No polyps, masses or ulcerations. The scope was retroflexed noting a hiatal hernia. No other pathology was noted. Scope was returned to its normal position. Biopsy of the antrum was obtained. Scope was then slowly retracted back into the distal esophagus, which had a small Schatzki's ring with some evidence of reflux esophagitis. Biopsy of this area was obtained. Scope was then slowly retracted back until completely removed noting no other pathology. RECOMMENDATIONS: The patient will be started on Protonix 40 mg daily. The patient to follow up in office in two to three weeks to see how she is doing at that time and go over pathology. Further recommendations pending. Job ID: [id number] DocumentID: [id number] Dictated Date: 01/13/2019 13:42:01 Linseed Oil Temperer Date: 01/13/2019 15:15:46 Dictated By: TADEO DUONG DO
== END 2019-01-13 14:15 | disposition home or self-care (01) ==
LOC: ENDO 12:26
PROVIDERS: ATTEND Surgery
DX: K22.2 Esophageal obstruction (principal); K21.0 Gastro-esophageal reflux disease with esophagitis; K44.9 Diaphragmatic hernia without obstruction or gangrene; K58.9 Irritable bowel syndrome, unspecified; I10 Essential (primary) hypertension; J44.9 Chronic obstructive pulmonary disease, unspecified; Z86.73 Personal history of transient ischemic attack (TIA), and cerebral infarction without residual deficits; Z87.891 Personal history of nicotine dependence; Z79.82 Long term (current) use of aspirin; Z79.899 Other long term (current) drug therapy

== ENCOUNTER 2019-02-09 14:17 | Outpatient (RCR) | payer MEDICARE ==
[~2019-02-09] VITALS: Ht 157.5 cm; Wt 70.8 kg
[~2019-02-09 14:17] MED LIST changes: +PANT40TA2 PO
[2019-02-09 14:25] VITALS: BP 103/50
[2019-03-03 14:00] VITALS: BP 115/60
[2019-03-03 15:00] VITALS: BP 130/70
[2019-03-04] MEDS ORDERED: ACET-2267 PO (08:40)
[2019-03-04] MEDS ORDERED: ATOR40TA70 PO (08:40)
[2019-03-04] MEDS ORDERED: NITR0.4T42 SL (08:40)
[2019-03-04] MEDS ORDERED: OMEP20TA33 PO (08:40)
[2019-03-04] MEDS ORDERED: L.AC1CAP6 PO (08:40)
[2019-03-05] MEDS ORDERED: ATOR40TA70 PO (10:21)
[2019-03-05] MEDS ORDERED: FURO20TA4 PO (10:21)
[2019-03-05] MEDS ORDERED: CLOP75TA28 PO (10:21)
[2019-03-05] MEDS ORDERED: PRED10TA22 PO (11:00)
== END 2019-05-10 | disposition home or self-care (01) ==
LOC: PULM 14:17
PROVIDERS: ATTEND Nurse Practitioner Family
DX: J43.9 Emphysema, unspecified (principal)

== ENCOUNTER 2019-03-03 17:15 | Inpatient (IN) | payer MEDICARE | END 2019-03-05 12:00 | disposition home or self-care (01) | LOC: ICU 03-04 18:12 → ER 17:15 → 4TH 20:11 | DX: R07.9 Chest pain, unspecified (principal); R00.2 Palpitations; R06.02 Shortness of breath; I25.10 Atherosclerotic heart disease of native coronary artery without angina pectoris; R10.9 Unspecified abdominal pain; J44.9 Chronic obstructive pulmonary disease, unspecified; I25.2 Old myocardial infarction; I10 Essential (primary) hypertension; E78.00 Pure hypercholesterolemia, unspecified; M54.9 Dorsalgia, unspecified; F41.9 Anxiety disorder, unspecified; F32.9 Major depressive disorder, single episode, unspecified; Z91.041 Radiographic dye allergy status; Z95.5 Presence of coronary angioplasty implant and graft; Z87.891 Personal history of nicotine dependence ==

== ENCOUNTER → 2019-03-03 | Outpatient (CLI) | payer MEDICARE ==
[2019-02-27 14:57] LABS: CREATININE SERUM 1.02 MG/DL (0.60-1.30)
[~2019-03-03] MED LIST changes: +ACET-2267 PO; +ATOR40TA70 PO; +CLOP75TA28 PO; +FURO20TA4 PO; +L.AC1CAP6 PO; +NITR0.4T42 SL; +OMEP20TA33 PO
--- NOTE | 2019-03-03 17:49 | Diagnostic Imaging Report ---
PROCEDURE: CT abdomen and pelvis with contrast. TECHNIQUE: Multiple contiguous axial images were obtained through the abdomen and pelvis after administration of intravenous contrast. Auto Exposure Controls were utilized during the CT exam to meet ALARA standards for radiation dose reduction. INDICATION: Abdominal pain for several years. Bloating. FINDINGS: The gallbladder is absent. The liver and bile ducts are normal. The spleen, pancreas, and adrenals are normal. The kidneys, ureters, and bladder are normal. There is no mass or adenopathy. There is no aortic aneurysm. There are fairly extensive calcifications of the iliac arteries with possible greater than 50% stenosis involving the common iliac arteries. No occlusions are evident. There is no acute bowel abnormality. There is no free intraperitoneal air or fluid. There is no ventral hernia. There is no acute bony abnormality. IMPRESSION: No acute abnormality is seen. Dictated by: Dictated on workstation # [id number]
== END ==
LOC: RAD 02-27 14:22
PROVIDERS: ATTEND Surgery
DX: R10.13 Epigastric pain (principal); R14.0 Abdominal distension (gaseous); Z90.49 Acquired absence of other specified parts of digestive tract
CPT/HCPCS: 36415; 74177; 82565; 84520